=== PATIENT | male | born 2000 | race Caucasian/White ===

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

== ENCOUNTER 2020-06-11 11:54 | Emergency (ER) | payer OTHER ==
[~2020-06-11] VITALS: Ht 182.9 cm; Wt 77.1 kg
[~2020-06-11 11:54] MED LIST changes: +AUGMENTIN 875-1 EACH PO; +IBUPROFEN 800800 MG PO; +IMOVAX RABIE2.5 UNIT IM
[2020-06-11] MEDS ORDERED: NORCO5 PO (13:50)
[2020-06-11 14:00] VITALS: BP 158/78
== END 2020-06-11 14:01 | disposition home or self-care (01) ==
LOC: M.ERS 11:54
DX: M54.5 Low back pain (principal); M54.2 Cervicalgia; Z79.899 Other long term (current) drug therapy; V49.88XA Car occupant (driver) (passenger) injured in other specified transport accidents, initial encounter; Y93.89 Activity, other specified; Y92.413 State road as the place of occurrence of the external cause; Y99.9 Unspecified external cause status